=== PATIENT | male | born 2000 | race Caucasian/White ===

== ENCOUNTER 2022-08-26 08:41 | Emergency (ER) | payer OTHER, SELFPAY ==
--- NOTE | ~2022-08-26 | XR_ITS ---
EXAMINATION: XR CHEST CLINICAL INFORMATION: Shortness of breath, diminished lung sounds. COMPARISON: None TECHNIQUE: 2 views of the chest were obtained. FINDINGS: No significant abnormality is noted involving the heart, lungs, mediastinum, bony thorax or soft tissues. XR/XR chest 2V IMPRESSION: No acute cardiopulmonary process.
[2022-08-26 08:46] VITALS: BP 128/79; PULSE 86; RESP 16; TEMP 36.9; O2SAT 98; BMI 29.0
--- NOTE | 2022-08-26 09:04 | ED_ITS ---
HPI - URI/Sore Throat General Chief Complaint: Upper Respiratory Symptoms Stated Complaint: Vomiting Time Seen by Provider: 08/26/22 08:51 Source: patient Mode of arrival: ambulatory Limitations: no limitations History of Present Illness HPI Narrative: 22-year-old male with a past medical history of asthma presents to the emergency department today with complaints of nausea, vomiting, cough, rhinorrhea, intermittent shortness of breath, and fevers for the past 2-3 days. His girlfriend also presents to the ER today with similar symptoms. He reports he last vomited this morning after coming home from work with associated pain near his left lower ribs while vomiting. He describes emesis as clear, without any blood. He also complains of intermittent shortness of breath, which he attributes to an exacerbation of his asthma, however; he has not used any albuterol as he no longer has prescription albuterol in his home. He has been using Tylenol, Motrin, and [id number] cold medicine at home for management of symptoms with no significant change. He denies any sore throat, ear pain, myalgias, headaches, chills, vision changes, abdominal pain, diarrhea, constipation, difficulty urinating, or chest pain at rest. MD elicited complaint: fever, cough and rhinorrhea Onset (ago): day(s) (2-3) Consistency: constant Severity: mild Description of mucous: clear Able to tolerate fluids by mouth: Yes Exacerbating factors: exertion Relieving factors: nothing Context: sick contacts Associated symptoms: denies other symptoms Treatments prior to arrival: acetaminophen, ibuprofen and cold medicine Related Data Previous Rx's Medication Instructions Recorded albuterol sulfate 5 mg/mL(0.5 %) 2.5 mg (0.5 mL) inhalation Q6H PRN 08/26/22 solution for nebulization shortness of breath or wheezing #20 mL albuterol sulfate 90 mcg/actuation 1 inh inhalation QID PRN shortness 08/26/22 aerosol inhaler (Proventil HFA) of breath or wheezing #6.7 grams Allergies Allergy/AdvReac Type Severity Reaction Status Date / Time No Known Allergies Allergy Unverified 06/05/20 17:42 Review of Systems Review of Systems: Yes all other systems are reviewed and are negative Constitutional: Constitutional: Reports no additional constitutional complaints, Denies chills, Reports fever(s), Denies headache(s), Denies poor appetite and Denies weight loss Eyes: Eyes: Reports no additional eye complaints and Denies change in vision ENT: Reports system reviewed and no additional complaints, except as documented, Reports Normal hearing present, Denies dizziness, Denies headache(s), Reports nasal congestion, Reports nasal discharge, Denies sinus pain, Denies sinus pressure and Denies sore throat Cardiovascular: Cardiovascular: Reports no additional cardiovascular complaints, Reports chest pain, Denies chest pain at rest, Denies dyspnea on exertion and Denies orthopnea Respiratory: Respiratory: Reports no additional respiratory complaints, Reports cough, Denies pain with cough, Denies dyspnea on exertion and Denies wheezing Gastrointestinal: Gastrointestinal: Reports no additional gastrointestinal complaints, Denies abdominal pain, Denies constipation, Denies diarrhea, Reports nausea and Reports vomiting Genitourinary: Genitourinary: Reports no additional male genitourinary complaints, Denies oliguria and Denies difficulty urinating Musculoskeletal: Musculoskeletal: Reports no additional musculoskeletal complaints, Denies myalgias, Denies numbness and Denies tingling Integumentary/Breasts: Skin/Breast: Reports system reviewed and no additional complaints, except as docu, Denies lesions, Denies rash and Denies sores Neurologic: Reports system reviewed and no additional complaints, except as documented, Reports Normal hearing present, Denies dizziness, Denies headache(s), Denies numbness and Denies tingling Endocrine: Endocrine: Reports no additional endocrine complaints Allergic/Immunologic: Allergic/Immunologic: Denies wheezing PMFSH Past Medical History Attestation statement: The following information was validated with the patient. Source: old records reviewed Social History Social History Advance Directives: No Advance Directives Information Provided: No Physical Exam Vital Signs: Vital Signs: Last Vital Signs Temp 98.4 F 08/26/22 08:46 Pulse 86 08/26/22 08:46 Resp 16 08/26/22 08:46 BP 128/79 08/26/22 08:46 Pulse Ox 98 08/26/22 08:46 O2 Del Method 08/26/22 08:46 BMI result Body Mass Index 29.0 Const: General: cooperative, alert and awake Nutritional Appearance: well nourished Orientation/consciousness: patient oriented x3 Limitations: no limitations HEENT: Head: Yes normal to inspection, Yes normocephalic and Yes atraumatic Ears: hearing grossly normal bilaterally, external ears normal and TM's normal bilaterally General nose exam: Normal external nose present and Normal nares present Face and sinus: Yes normal facial exam and Yes face symmetric Mouth: Normal oral and palatal mucosa present Throat: Yes posterior oropharynx normal and Yes tonsils normal Eyes: General: appearance normal, both eyes and all related structures Visual Kelly: normal visual kelly by confrontation Alignment and Position: alignment normal Periorbital: periorbital findings normal Eyelids: Yes eyelids normal Conjunctivae: conjunctivae normal Sclerae: sclerae normal Corneas: corneas normal Pupils: Equal, round and reactive pupils present EOM: EOMs intact bilaterally Neck: Neck: Yes normal visual inspection, Yes full ROM and Yes no lymphadenopathy Chest: Chest palpation & inspection: normal inspection of the chest Resp: Effort & Inspection: normal respiratory effort Auscultation: no crackles, no rhonchi, no wheezes and diminished lung sounds on the right (mid) and bilateral in the lower lung kelly Cardio: Rate: regular rate Rhythm: regular rhythm Heart sounds: S1 normal heart sound present and S2 normal heart sound present GI: Inspection: Yes normal to inspection Palpation (GI): Soft to palpation and nontender Auscultation: normal bowel sounds Back/Spine/Pelvis: Cervical Spine: cervical ROM normal Thoracic/Lumbar Spine: thoraco-lumbar ROM normal Skin: General skin exam: no rashes or lesions noted Neuro: General: patient oriented x3 Cranial nerves: Yes Equal, round and reactive pupils present and Yes Normal hearing present Cognition (Neuro): normal cognition Gait exam (Neuro): Normal gait present Motor exam (neuro): 5/5 motor strength present throughout Extrem: General: Yes normal to inspection, Yes full ROM and Yes capillary refill normal Course Course Course Narrative: 0900: Pt c/o intermittent SOB and chest pain with exertion. Chest xray ordered EXAMINATION: XR CHEST CLINICAL INFORMATION: Shortness of breath, diminished lung sounds. COMPARISON: None TECHNIQUE: 2 views of the chest were obtained. FINDINGS: No significant abnormality is noted involving the heart, lungs, mediastinum, bony thorax or soft tissues. XR/XR chest 2V IMPRESSION: No acute cardiopulmonary process. Dictated By: Cristian Fraser MD Signed By: <Electronically signed by Cristian Fraser MD in OV> 08/26/22918 DD/ 3 TD/TT:? Banner Painter: BOGDAN Medical Decision Making Medical Decision Making MDM Narrative: 22-year-old male with a past medical history of asthma presents to the emergency department today with complaints of nausea, vomiting, cough, rhinorrhea, intermittent shortness of breath, and fevers for the past 2-3 days. With chest x-ray with no acute cardiopulmonary processes. Serology positive for flu A, outside the range for treatment with Tamiflu. Patient safe to be discharged home with plan for symptom management with Tylenol, Motrin, and prescription albuterol nebulizers and inhaler ordered to his preferred pharmacy. History, physical exam, serology, and plan discussed with patient with no answer questions at this time. Patient educated to return to the emergency department with increased shortness of breath, chest pain, vomiting he cannot tolerate p.o., fever despite treatment with Tylenol Motrin, or any other concerning symptoms. Recommended follow-up with his primary care provider for further recommendations and management. Discharge Plan Discharge Clinical Impression: Flu Patient Disposition: Home, Self-Care Instructions: Influenza (ED) Additional Instructions: Your nasal swab is positive for influenza A. Unfortunately or out of the time range for Tamiflu treatment as it needs to be started within 72 hours of 1st symptoms. Your chest x-ray is normal. Albuterol nebulizer and rescue inhaler ordered for management of asthma symptoms. Please use as prescribed. Please return to the emergency department with increased shortness of breath, chest pain, vomiting where you cannot cannot tolerate solid food or water, fever despite treatment with Tylenol or Motrin, or any other concerning symptoms. Recommended that you follow-up with your primary care provider for further recommendations and treatment. Unfortunately, her partner has been diagnosed with COVID 19. There is a potential that you may also contact COVID-19 and her partner may contract for the flu due to close proximity. Please practice frequent handwashing and it is recommended that you wear mask in the home to reduce the rate of transmission. Prescriptions: New albuterol sulfate [Proventil HFA] 90 mcg/actuation HFA aerosol inhaler 1 inh inhalation QID PRN (Reason: shortness of breath or wheezing) Qty: 6.7 0RF albuterol sulfate 5 mg/mL solution for nebulization 2.5 mg inhalation Q6H PRN (Reason: shortness of breath or wheezing) Qty: 20 0RF Referrals: [facility] [place] Group] [facility]Provider Group] [facility] [Provider Group] Stand Alone Forms: Work/School Release Interventions: ED Discharge Assessment Last Done: 08/26/22 10:10 Discharge Date/Time: 08/26/22 10:10 Print Language: Uzbek
[2022-08-26 09:37] LABS: Influenza A PCR POSITIVE (Negative); Influenza B PCR NEGATIVE (Negative); Resp Syncy Virus RNA Qual PCR NEGATIVE (Negative); SARS COV2 PCR INHOUSE NEGATIVE (Negative)
== END 2022-08-26 10:10 | disposition home or self-care (01) ==
PROVIDERS: Emergency Provider Emergency Medicine
DX: J10.1 Influenza due to other identified influenza virus with other respiratory manifestations (principal); R11.2 Nausea with vomiting, unspecified; R05.9 Cough, unspecified; R06.02 Shortness of breath; Z20.822 Contact with and (suspected) exposure to COVID-19; Z79.899 Other long term (current) drug therapy
CPT/HCPCS: 0241U; 71046; 99283

== ENCOUNTER 2022-09-13 09:48 | Emergency (ER) | payer OTHER, SELFPAY ==
--- NOTE | ~2022-09-13 | XR_ITS ---
EXAMINATION: XR chest 2V CLINICAL INFORMATION: Reason for Exam R lower CP with inspiration COMPARISON: Chest radiograph 08/26/2022 TECHNIQUE: 2 views of the chest FINDINGS: Clear lungs. No pneumothorax or pleural effusion. Normal cardiomediastinal silhouette. XR/XR chest 2V
[2022-09-13 10:01] VITALS: BP 121/74; PULSE 83; RESP 20; TEMP 36.7; O2SAT 98; BMI 29.3
--- NOTE | 2022-09-13 11:38 | ED_ITS ---
HPI - Abdominal Pain General Chief Complaint: Abdominal Pain Stated Complaint: R side abd pain Time Seen by Provider: 09/13/22 11:26 Source: patient Mode of arrival: ambulatory Limitations: no limitations History of Present Illness HPI narrative: Patient is a 22-year-old male presents to the emergency department for evaluation of a right upper abdominal/right lower chest pain. Onset of pain was at 05:30 this morning, it was 1st noticed soon after he lifted a heavy box while at work. Currently he states the pain is made worse with particular movements as well as deep inspiration. He states that he tested positive for the flu 3 weeks ago, however his symptoms have completely resolved. He denies any additi onal fevers, chills, cough, shortness of breath. Denies any nausea, vomiting, additional locations of abdominal pain, diarrhea, constipation. Denies dysuria, or urinary frequency. Denies any pertinent past medical history. Related Data Previous Rx's Medication Instructions Recorded albuterol sulfate 5 mg/mL(0.5 %) 2.5 mg (0.5 mL) inhalation Q6H PRN 08/26/22 solution for nebulization shortness of breath or wheezing #20 mL albuterol sulfate 90 mcg/actuation 1 inh inhalation QID PRN shortness 08/26/22 aerosol inhaler (Proventil HFA) of breath or wheezing #6.7 grams Allergies Allergy/AdvReac Type Severity Reaction Status Date / Time No Known Allergies Allergy Unverified 06/05/20 17:42 Review of Systems Review of Systems Constitutional : No Weight loss, No Fever, No Chills ENT/Mouth :? No sore throat, No Rhinorrhea Eyes: No Swelling, No Redness Cardiovascular : No Chest Pain, No SOB, No Edema Respiratory : No Cough, No Sputum, No Wheezing Gastrointestinal : No Nausea, no Vomiting, no Diarrhea, positive abdominal pain, No Hematochezia, No Melena Genitourinary : No Dysuria, No Urinary Frequency, No Hematuria, No Urgency? Musculoskeletal : No joint pain, No Myalgias, No Joint Swelling Skin : No Skin Lesions, No rash Neuro : No Weakness, No Numbness, No Dizziness, No Headache Psych : No Anxiety/Panic, No Depression Yes all other systems are reviewed and are negative [facility] Past Medical History Attestation statement: The following information was validated with the patient. Source: old records reviewed Social History Social History Alcohol intake: never Smoked in Last 30 Days: No Use of substances other than those prescribed or required for medical reasons: No Advance Directives: No Advance Directives Information Provided: Yes Physical Exam ED Vital Signs: Vital Signs - 24 hr 09/13/22 10:01 09/13/22 12:13 Temperature 98.0 F 98.0 F Pulse Rate 83 77 Respiratory Rate 20 14 Blood Pressure 121/74 126/66 Pulse Oximetry 98 99 Oxygen Delivery Method Room Air Room Air BMI result Body Mass Index 29.3 Appearance: Alert.?Oriented to person, place and time. No acute distress.?Normal affect. Eyes: Pupils equal, round and reactive to light.? ENT: Pharynx normal.?? Neck: Normal inspection.? Neck supple.?? CVS: Heart sounds normal. Normal heart rate and rhythm.? Pulses normal.?? Respiratory: No respiratory distress.? Lung sounds clear to auscultation bilaterally?? Abdomen: Soft with mild right upper quadrant/right lower chest wall tenderness upon palpation. Negative Lopez sign. No rigidity, no guarding, no rebound tenderness at McBurney's point. Normoactive bowel sounds. ?No CVA tenderness Skin: Skin warm and dry.? Normal skin color.? Extremities: No lower extremity edema.? Neuro: Moves all extremities spontaneously. Sensation intact bilaterally. Ambulates with normal steady gait. Course Reevaluation(s) Reevaluation #1: CBC and CMP are overall unremarkable, lipase within normal limits. Chest x-ray without evidence of an consolidation or infiltrate, not consistent with pneumonia. At this time suspect pain to be most consistent with musculoskeletal strain of the chest wall. Discussed plan of care for discharge home, acetamino phen/ibuprofen as needed for pain, rest, ice to the area, avoidance of heavy lifting, outpatient follow-up with primary care provider as needed. All questions answered. He is stable for discharge. Time: 13:39 Medical Decision Making Medical Decision Making MDM Narrative: Patient is a 22-year-old male with no reported past medical history presenting to emergency department for evaluation of right abdominal pain. Physical examination is consistent with pain upon palpation of the right lower anterior chest wall as well as right upper quadrant, however Lopez sign is negative. At this time pain appears most consistent with a muscular strain of the chest wall, however cannot completely exclude hepatic/biliary nature of pain given tenderness of abdomen. Will obtain CBC, CMP, lipase. Patient with recent viral infection, pain is also reported with deep inspiration, will obtain chest x-ray to evaluate for pneumonia. Patient took ibuprofen at 07:30 today. Lab Data MDM Lab Attestation statement: I reviewed the patient's lab results. Result Diagrams: 09/13/22 11:55 09/13/22 11:55 Labs: Lab Results 09/13/22 09/13/22 09/13/22 Range/Units 11:52 11:55 11:55 WBC 8.5 (4.8-10.8) X10*3/uL RBC 4.72 (4.60-5.80) X10*6/uL Hgb 14.3 (14.0-18.0) g/dl Hct 41.9 L (42.0-52.0) % MCV 88.8 (80.0-98.0) fL MCH 30.3 (27.0-33.0) pg MCHC 34.1 (31.0-36.0) g/dl RDW 12.1 (11.0-16.0) % Plt Count 410 H (160-400) X10*3/uL MPV 10.7 (9.4-12.4) fL Immature Gran % (Auto) 0.4 (0.0-0.4) % Neut % (Auto) 56.8 (45-73) % Lymph % (Auto) 28.2 (20-40) % [place] % (Auto) 6.6 (2-11) % Eos % (Auto) 7.3 H (0-4) % Baso % (Auto) 0.7 (0-2) % Lymph # (Auto) 2.4 (1.2-4.9) X10*3/uL [place] # (Auto) 0.6 (0.1-1.2) X10*3/uL Eos # (Auto) 0.6 H (0.0-0.4) X10*3/uL Baso # (Auto) 0.1 (0.0-0.2) X10*3/uL Abs Immat Gran (auto) 0.03 (0.00-0.03) X10*3/uL Absolute Neuts (auto) 4.9 (2.0-8.3) x10*3/uL Absolute Nucleated RBC 0.000 (0.0-0.012) X10*3/uL Nucleated RBC % (auto) 0.0 (0.0-0.2) /100WBC Sodium 139 (135-145) mmol/L Potassium 4.1 (3.3-5.1) mmol/L Chloride 106 (96-108) mmol/L Carbon Dioxide 26 (22-29) mmol/L Anion Gap 11 L (12-20) BUN 13 (9-16) mg/dL Creatinine 0.93 (0.5-1.4) mg/dL Estim Creat Clear Calc 154.2 Estimated GFR > 60 Random Glucose 91 (60-115) mg/dL Calcium 9.7 (8.4-10.2) mg/dL Total Bilirubin 0.9 (0.0-1.0) mg/dL AST 18 (5-37) U/L ALT 18 (0-40) U/L Alkaline Phosphatase 48 (39-117) U/L Total Protein 7.5 (6.5-8.0) g/dL Albumin 4.7 (3.5-5.0) g/dL Lipase 22 (8-78) U/L COVID-19 (DELANEY) Negative (Negative) COVID-19 Clin Com See Note Independent Interpretation I performed an independent interpretation of an: Plain X-Ray Interpretation: I have interpreted the chest x-ray and agree with radiologist impression. Radiology Impression Discussion of test interpretation with radiology: I have reviewed the radiologist's reading. Radiologist Impression: XR/XR chest 2V IMPRESSION: ? *? Clear lungs. Discharge Plan Discharge Clinical Impression: Acute costochondritis Patient Disposition: Home, Self-Care Additional Instructions: As discussed your blood work today was overall normal. Your COVID testing was negative. Your x-ray of the chest is not indicate any evidence of pneumonia. Your pain is most consistent with a strain of the muscles within the chest wall. You can take ibuprofen 200 mg, 3 tablets (600mg) every 6-8 hours as needed for pain, in addition to Tylenol 500 mg, 2 tablets (1,000mg) every 4-6 hours as needed for pain, but not to exceed 3 doses daily (3,000mg).? Please follow-up with your primary care provider as needed for persistent symptoms. You may return back to emergency department with any new or worsening symptoms or concerns. Prescriptions: No Action albuterol sulfate [Proventil HFA] 90 mcg/actuation HFA aerosol inhaler 1 inh inhalation QID PRN (Reason: shortness of breath or wheezing) Qty: 6.7 0RF albuterol sulfate 5 mg/mL solution for nebulization 2.5 mg inhalation Q6H PRN (Reason: shortness of breath or wheezing) Qty: 20 0RF Interventions: ED Discharge Assessment Last Done: 09/13/22 14:39 Discharge Date/Time: 09/13/22 14:39
[2022-09-13 12:00] LABS: MANUAL DIFF FLAG NO
[2022-09-13 12:09] LABS: Basophils Absolute Auto 0.1 X10*3/uL (0.0-0.2); Basophils Percent Auto 0.7 % (0-2); Eosinophils Absolute Auto 0.6 X10*3/uL (0.0-0.4); Eosinophils Percent Auto 7.3 % (0-4); Hematocrit 41.9 % (42.0-52.0); Hemoglobin 14.3 g/dl (14.0-18.0); Imm Gran Abs Auto 0.03 X10*3/uL (0.00-0.03); Imm Gran Pct Auto 0.4 % (0.0-0.4); Lymphocytes Absolute Auto 2.4 X10*3/uL (1.2-4.9); Lymphocytes Percent Auto 28.2 % (20-40); Mean Corpuscular HGB Conc 34.1 g/dl (31.0-36.0); Mean Corpuscular Hemoglobin 30.3 pg (27.0-33.0); Mean Corpuscular Volume 88.8 fL (80.0-98.0); Mean Platelet Volume 10.7 fL (9.4-12.4); Monocytes Absolute Auto 0.6 X10*3/uL (0.1-1.2); Monocytes Percent Auto 6.6 % (2-11); Neutrophils Absolute Auto 4.9 x10*3/uL (2.0-8.3); Neutrophils Percent Auto 56.8 % (45-73); Platelet Count 410 X10*3/uL (160-400); Red Blood Count 4.72 X10*6/uL (4.60-5.80); Red Cell Distribution Width 12.1 % (11.0-16.0); White Blood Count 8.5 X10*3/uL (4.8-10.8)
[2022-09-13 12:13] VITALS: BP 126/66; PULSE 77; RESP 14; TEMP 36.7; O2SAT 99
[2022-09-13 12:15] LABS: COVID-19 Test Negative (Negative); IDNOW Serial# 16C4AD1C
[2022-09-13 12:15] LABS: Alanine Aminotransferase 18 U/L (0-40); Albumin Level 4.7 g/dL (3.5-5.0); Alkaline Phosphatase 48 U/L (39-117); Anion Gap 11 (12-20); Aspartate Amino Transferase 18 U/L (5-37); Bilirubin Total 0.9 mg/dL (0.0-1.0); Blood Urea Nitrogen 13 mg/dL (9-16); Calcium 9.7 mg/dL (8.4-10.2); Carbon Dioxide 26 mmol/L (22-29); Chloride 106 mmol/L (96-108); Creatinine Clr Calc Pharmacy 154.2; Estimated Glomerular Filt Rate > 60; Glucose Random 91 mg/dL (60-115); Lipase 22 U/L (8-78); Potassium 4.1 mmol/L (3.3-5.1); Sodium 139 mmol/L (135-145); Total Protein 7.5 g/dL (6.5-8.0)
== END 2022-09-13 14:39 | disposition home or self-care (01) ==
PROVIDERS: Nurse Practitioner Family; Emergency Provider Emergency Medicine
DX: M94.0 Chondrocostal junction syndrome [Tietze] (principal); Z20.822 Contact with and (suspected) exposure to COVID-19
CPT/HCPCS: 71046; 80053; 83690; 85025; 87635; 99283; 99284

== ENCOUNTER 2024-05-19 00:58 | Emergency (ER) | payer OTHER, SELFPAY ==
[2024-05-19 01:02] VITALS: BP 144/87; PULSE 89; RESP 14; TEMP 36.3; O2SAT 99; BMI 32.0
[2024-05-19 01:34] VITALS: BP 138/87; PULSE 92; RESP 16; TEMP 36.8; O2SAT 99
--- NOTE | 2024-05-19 01:47 | ED.GENADULT ---
HPI - General Adult General Chief complaint: General Medical Stated complaint: lt foot rash Time Seen by Provider: 05/19/24 01:30 Source: patient, RN notes reviewed and old records reviewed Mode of arrival: ambulatory Limitations: no limitations History of Present Illness ED Provider: Kavya VALLEJO narrative: 24-year-old male presents for evaluation of a rash on top of his left foot. The patient reports that his symptoms started a few months ago. He describes a pruritic rash to the top of his left foot that has not spread but actually appears to be improving He presents today because he relocated to the area. Related Data Previous Rx's ?Medication ?Instructions ?Recorded albuterol sulfate 5 mg/mL(0.5 %) 2.5 mg (0.5 mL) inhalation Q6H PRN 08/26/22 solution for nebulization shortness of breath or wheezing #20 mL albuterol sulfate 90 mcg/actuation 1 inh inhalation QID PRN shortness 08/26/22 aerosol inhaler (Proventil HFA) of breath or wheezing #6.7 grams hydrocortisone 2.5 % topical 1 appl topical BID 7 days #20 grams 05/19/24 ointment Allergies Allergy/AdvReac Type Severity Reaction Status Date / Time No Known Allergies Allergy Verified 05/19/24 01:04 Review of Systems Constitutional: Constitutional: Denies body ache(s), Denies chills and Denies fever(s) Cardiovascular: Cardiovascular: Denies chest pain and Denies dyspnea Respiratory: Respiratory: Denies cough and Denies dyspnea Gastrointestinal: Gastrointestinal: Denies abdominal pain, Denies nausea and Denies vomiting Integumentary/Breasts: Skin/Breast: Reports pruritus, Denies erythema and Reports rash Psychiatric: Psychiatric: Denies anxiety [facility] Social History Social History Alcohol intake: never Smoked in Last 30 Days: Yes Advance Directives: No Advance Directives Information Provided: Yes Do you have a plan to hurt others: No Plan Physical Exam ED Vital Signs: Vital Signs - 24 hr 05/19/24 01:02 05/19/24 01:34 Temperature 97.3 F 98.3 F Pulse Rate 89 92 Respiratory Rate 14 16 Blood Pressure 144/87 H 138/87 Pulse Oximetry 99 99 Oxygen Delivery Method Room Air Room Air BMI result Body Mass Index 32.0 Const General: healthy appearing, comfortable, no acute distress, alert and awake Nutritional Appearance: well nourished Orientation/consciousness: patient oriented x3 HENMT Head: Yes normocephalic and Yes atraumatic Eyes Eyelids: Yes eyelids normal Conjunctivae: conjunctivae normal Sclerae: sclerae normal Corneas: corneas normal Pupils: Equal, round and reactive pupils present EOM: EOMs intact bilaterally Neck Neck: Yes full ROM Resp Effort & Inspection: normal respiratory effort, able to speak in complete sentences and not labored Skin Other: Patient has several maculopapular lesions the dorsal surface of left foot. It does not involve the web spacing of the toes. No significant erythema. Minimal excoriation grossman there is several small areas of scaling to the center of the rash. The rash does not appear linear in nature, it does not radiate up the leg or onto the plantar surface of the foot. There is no rash anywhere else in the body General skin exam: elasticity normal Neuro General: patient oriented x3 Cranial nerves: Yes Equal, round and reactive pupils present and Yes Bilaterally intact EOM present Cognition (Neuro): normal cognition Extrem Other: Moving all extremities well without any obvious deformities Medical Decision Making Medical Decision Making MDM Narrative: The patient's rash is not consistent with an infectious process, allergic process. It is likely inflammatory process, possibly eczema. He does report that he is on his feet frequently and occasionally has to stand with sweaty socks on for several hours. We will treat with [id number] hydrocortisone.. Differential Diagnosis Differential Diagnoses: The differential diagnosis associated with the presentation includes Dermatitis Tinea pedis Eczema Acute rash Discharge Plan Discharge Clinical Impression: Dermatitis Patient Disposition: Home, Self-Care Instructions: Dermatitis (ED) Additional Instructions: Your rash does not appear to be infectious in nature. It looks like it could possibly be eczema Use hydrocortisone cream twice daily for 1 week Return for new or worsening symptoms. You may follow-up with dermatology as an outpatient Prescriptions: New hydrocortisone 2.5 % ointment 1 appl topical BID 7 Days Qty: 20 0RF No Action albuterol sulfate [Proventil HFA] 90 mcg/actuation HFA aerosol inhaler 1 inh inhalation QID PRN (Reason: shortness of breath or wheezing) Qty: 6.7 0RF albuterol sulfate 5 mg/mL solution for nebulization 2.5 mg inhalation Q6H PRN (Reason: shortness of breath or wheezing) Qty: 20 0RF Print Language: Wallisian
[2024-05-19 01:54] VITALS: BP 138/87; PULSE 92; RESP 16; TEMP 36.8; O2SAT 99
== END 2024-05-19 01:58 | disposition home or self-care (01) ==
PROVIDERS: Emergency Provider Emergency Medicine
DX: L30.8 Other specified dermatitis (principal); R21 Rash and other nonspecific skin eruption
CPT/HCPCS: 99283; 99284